=== PATIENT | female | born 1990 | race African-American/Black ===

== ENCOUNTER 2023-09-02 01:53 | Emergency (ER) | payer MEDICAID ==
[~2023-09-02] VITALS: Ht 167.6 cm; Wt 66.0 kg
[2023-09-02] MEDS: TETANUS, DIPHTHERIA, PERTUSSIS VAC/PF 0.5ML (>10YR OLD) IM ONE (02:30)
[2023-09-02] MEDS: DIPHENHYDRAMINE 50MG/ML VIAL IM STA (02:54)
[2023-09-02] MEDS: LORAZEPAM 2MG/ML INJ IM ONE (02:55)
[2023-09-02] MEDS: HALOPERIDOL LACTATE 5MG/ML VIAL IM ONE (03:27)
[2023-09-02 04:43] LABS: CLARITY URINE CLEAR (CLEAR); COLOR URINE YELLOW (YELLOW); GLUCOSE URINE NEGATIVE (NEGATIVE); KETONES URINE TRACE (NEGATIVE); LEUKOCYTE ESTERASE URINE NEGATIVE (NEGATIVE); NITRITE URINE NEGATIVE (NEGATIVE); OCCULT BLOOD URINE TRACE (NEGATIVE); PROTEIN URINE 1+ (NEGATIVE); SPECIFIC GRAVITY URINE 1.018 (1.005-1.030); UROBILINOGEN URINE 0.2 E.U./dL (0.2-1.0)
[2023-09-02 05:12] LABS: *AMPHETAMINES SCREEN URINE NEGATIVE (NEGATIVE); *BARBITURATES SCREEN URINE NEGATIVE (NEGATIVE); *BENZODIAZEPINES SCREEN URINE NEGATIVE (NEGATIVE); *COCAINE SCREEN URINE NEGATIVE (NEGATIVE); CANNABINOID URINE SCREEN PRESUMPTIVE POSITIVE (NEGATIVE); ECSTASY MDMA SCREEN URINE NEGATIVE (NEGATIVE); METHADONE URINE SCREEN Neg (NEGATIVE); OPIATES URINE SCREEN NEGATIVE (NEGATIVE); PHENCYCLIDINE URINE SCREEN NEGATIVE (NEGATIVE)
[2023-09-02 05:13] VITALS: O2SAT 98
[2023-09-02 06:23] LABS: BACTERIA URINE 1+; RBC URINE 0-2 /hpf (0-2); SQUAMOUS EPITHELIAL CELL URINE 1+ /lpf (RARE/1+); WBC URINE NONE SEEN /hpf (0-2)
[2023-09-02 06:24] LABS: BASOPHILS % 0.3 % (0.0-2.0); HEMATOCRIT. 36.8 % (36.0-48.0); HEMOGLOBIN. 11.9 g/dL (12.0-16.0); LYMPHOCYTES % 18.1 % (20.0-50.0); MEAN CORPUSCULAR HEMOGLOBIN 29.9 pg (28.0-32.0); MEAN CORPUSCULAR HGB CONC 32.3 g/dL (31.0-37.0); MEAN CORPUSCULAR VOLUME 92.5 fL (81.0-99.0); MEAN PLATELET VOLUME 6.7 fl (7.4-10.4); MONOCYTES % 8.5 % (2.0-8.0); NEUTROPHILS % 73.1 % (40.0-76.0); PLATELET 319 x1000/uL (130-400); RED BLOOD CELL COUNT 3.98 mill/uL (4.2-5.4); RED CELL DISTRIBUTION WIDTH 14.5 % (11.6-14.6); WHITE BLOOD COUNT 8.4 x1000/uL (4.5-11.0)
[2023-09-02] MEDS ORDERED: BACITRACIN 14GM TUBE TOP ONE (06:45)
[2023-09-02 06:46] LABS: ACETAMINOPHEN < 2 ug/mL (10-30); ALANINE AMINOTRANSFERASE 32 IU/L (10-49); ALBUMIN 4.4 g/dL (3.2-4.8); ASPARTATE AMINOTRANSFERASE 40 IU/L (<34); BILIRUBIN TOTAL 0.3 mg/dL (0.1-1.0); CALCIUM 8.4 mg/dL (8.7-10.4); CARBON DIOXIDE 20 mEq/L (21-32); CHLORIDE 109 mEq/L (98-107); CREATININE 0.7 mg/dL (0.6-1.0); ETHANOL BLOOD 231 mg/dL (<10); GLUCOSE 85 mg/dL (70-105); POTASSIUM 3.7 mEq/L (3.5-5.1); PROTEIN TOTAL 7.8 g/dL (6.0-8.3); SODIUM 140 mEq/L (136-145); UREA NITROGEN BLOOD 7 mg/dL (9-23)
[2023-09-02] MEDS: BACITRACIN ZINC OINT UDPKT TOP SCH (07:10)
[2023-09-02 07:28] LABS: HCG SCREEN NEGATIVE
[2023-09-02 20:21] VITALS: BP 129/80; PULSE 98; RESP 18; TEMP 96.8
== END 2023-09-02 20:48 ==
LOC: ER 01:53
DX: S01.112A Laceration without foreign body of left eyelid and periocular area, initial encounter (principal); R45.1 Restlessness and agitation; R41.82 Altered mental status, unspecified; Z20.822 Contact with and (suspected) exposure to COVID-19; X58.XXXA Exposure to other specified factors, initial encounter; Y93.89 Activity, other specified; Y92.89 Other specified places as the place of occurrence of the external cause; Y99.8 Other external cause status
CPT/HCPCS: 80053; 80305; 81003; 81025; 80307; 80329; 80320; 84703; 85025; 36415; 70450; 70486; 90715; 90471; 96372; 99285; 87426; J1200; J1630; J2060; Z7610; G0480

== ENCOUNTER 2024-08-01 14:38 | Emergency (ER) | payer MEDICAID ==
[~2024-08-01] VITALS: Ht 170.2 cm; Wt 86.1 kg
[2024-08-01 14:51] VITALS: O2SAT 99
[2024-08-01 19:18] LABS: CLARITY URINE CLEAR (CLEAR); COLOR URINE YELLOW (YELLOW); GLUCOSE URINE NEGATIVE (NEGATIVE); KETONES URINE 1+ (NEGATIVE); LEUKOCYTE ESTERASE URINE NEGATIVE (NEGATIVE); NITRITE URINE NEGATIVE (NEGATIVE); OCCULT BLOOD URINE NEGATIVE (NEGATIVE); PH URINE 5.5 (4.5-8.0); PROTEIN URINE TRACE (NEGATIVE); SPECIFIC GRAVITY URINE 1.038 (1.005-1.030); UROBILINOGEN URINE 0.2 E.U./dL (0.2-1.0)
[2024-08-01] MEDS ORDERED: LIDO700A30 TP (19:28)
[2024-08-01 19:39] VITALS: BP 144/89; PULSE 70; RESP 18; TEMP 36.6; O2SAT 99
[2024-08-01 21:53] LABS: BACTERIA URINE 3+; SQUAMOUS EPITHELIAL CELL URINE FEW /lpf (RARE/1+)
[2024-08-01 21:54] LABS: RBC URINE 0-2 /hpf (0-2); WBC URINE 0-2 /hpf (0-2)
== END 2024-08-01 19:40 | disposition home or self-care (01) ==
LOC: ER 14:38
DX: R10.32 Left lower quadrant pain (principal)
CPT/HCPCS: 71045; 81003; 93005; 99285

== ENCOUNTER 2025-03-27 00:10 | Emergency (ER) | payer MEDICAID ==
[~2025-03-27] VITALS: Ht 170.2 cm; Wt 79.2 kg
[~2025-03-27 00:10] MED LIST: LIDO700A30 TP
[2025-03-27 00:25] VITALS: O2SAT 99
[2025-03-27] MEDS: SODIUM CHLORIDE 0.9% 1,000 ML IV ONE (00:53)
[2025-03-27 01:00] LABS: BASOPHILS % 0.6 % (0.0-2.0); EOSINOPHILS % 0.7 % (0.0-5.0); HEMATOCRIT. 37.1 % (36.0-48.0); HEMOGLOBIN. 11.9 g/dL (12.0-16.0); LYMPHOCYTES % 26.6 % (20.0-50.0); MEAN PLATELET VOLUME 6.6 fl (7.4-10.4); MONOCYTES % 10.6 % (2.0-8.0); NEUTROPHILS % 61.5 % (40.0-76.0); PLATELET 393 x1000/uL (130-400); RED BLOOD CELL COUNT 4.06 mill/uL (4.2-5.4); RED CELL DISTRIBUTION WIDTH 14.4 % (11.6-14.6)
[2025-03-27 01:13] LABS: HCG SCREEN NEGATIVE
[2025-03-27 01:16] LABS: CREATININE 0.7 mg/dL (0.6-1.0); UREA NITROGEN BLOOD 7 mg/dL (9-23)
[2025-03-27 01:17] LABS: ETHANOL BLOOD 234 mg/dL (<10)
[2025-03-27] MEDS: CHLORDIAZEPOXIDE 10MG CAPSULE PO ONE (02:13)
[2025-03-27] MEDS ORDERED: ONDA4TAB50 MT (04:14)
[2025-03-27] MEDS ORDERED: THIA50TA12 MT (04:14)
[2025-03-27] MEDS ORDERED: L10 MT (04:14)
[2025-03-27 04:33] VITALS: BP 113/74; PULSE 74; RESP 17; TEMP 36.7; O2SAT 100
== END 2025-03-27 05:03 | disposition home or self-care (01) ==
LOC: ER 00:19
DX: F10.20 Alcohol dependence, uncomplicated (principal); F14.20 Cocaine dependence, uncomplicated; Y90.7 Blood alcohol level of 200-239 mg/100 ml
CPT/HCPCS: 80048; 80320; 84703; 85025; 36415; 96360; 99283; J7030; G0480

== ENCOUNTER 2025-05-08 10:02 | Emergency (ER) | payer MEDICAID ==
[~2025-05-08] VITALS: Ht 170.2 cm; Wt 81.0 kg
[~2025-05-08 10:02] MED LIST changes: +L10 MT; +ONDA4TAB50 MT; +THIA50TA12 MT
[2025-05-08 10:09] VITALS: O2SAT 99
[2025-05-08 10:16] VITALS: BP 129/89; PULSE 100; RESP 18; TEMP 36.9; O2SAT 100
== END 2025-05-08 12:00 | disposition home or self-care (01) ==
LOC: ER 10:02
DX: F41.9 Anxiety disorder, unspecified (principal); Z55.6 Problems related to health literacy; F10.90 Alcohol use, unspecified, uncomplicated; F12.90 Cannabis use, unspecified, uncomplicated; Y90.9 Presence of alcohol in blood, level not specified
CPT/HCPCS: 99283